=== PATIENT | female | born 1975 | race Caucasian/White ===

== ENCOUNTER → 2018-01-26 | Outpatient (CLI) | payer BC ==
--- NOTE | 2018-01-26 11:21 | XR ---
EXAMINATION TYPE: XR foot complete RT DATE OF EXAM: 01/26/2018 CLINICAL HISTORY: Stabbing injury with pain TECHNIQUE: Frontal, lateral, and oblique images of the right foot are obtained. COMPARISON: None FINDINGS: Seen best on lateral view there is 4 mm linear soft tissue foreign body along plantar surf demetrio at level of second and third metatarsal distal metaphyses. There is no acute fracture/dislocation evident in the right foot. Slight hallux valgus positioning with mild joint space loss first metatar sophalangeal joint is noted. IMPRESSION: There is 4 mm linear soft tissue foreign body confirmed on 3 views.
== END | disposition home or self-care (01) ==
LOC: RADXRMAIN 10:24
PROVIDERS: ATTEND Podiatrist Foot Surgery
DX: S90.851D Superficial foreign body, right foot, subsequent encounter (principal)

== ENCOUNTER → 2021-11-29 | Outpatient (CLI) | payer BC ==
--- NOTE | 2021-12-11 10:51 | MM ---
Reason for exam: screening (asymptomatic). Last mammogram was performed 6 years and 4 months ago. History: Family history of breast cancer in mother at age 65. Physical Findings: A clinical breast exam by your physician is recommended on an annual basis and results should be correlated with mammographic findings. MG 3D Screening Mammo W/Cad Bilateral CC and MLO view(s) were taken. Prior study comparison: August 09, 2015, mammogram, performed at [facility]. The breast tissue is extremely dense which could obscure a lesion on mammography. There is no discrete abnormality. ASSESSMENT: Negative, BI-RAD 1 RECOMMENDATION: Routine screening mammogram of both breasts in 1 year.
== END | disposition home or self-care (01) ==
LOC: RADMAMWWP 09:18
PROVIDERS: ATTEND Family Medicine
DX: Z12.31 Encounter for screening mammogram for malignant neoplasm of breast (principal); Z80.3 Family history of malignant neoplasm of breast
CPT/HCPCS: 77063; 77067

== ENCOUNTER → 2023-04-07 | Outpatient (CLI) | payer BC ==
--- NOTE | 2023-04-08 09:59 | MM ---
Reason for Exam: Screening (asymptomatic). Last mammogram was performed 1 year(s) and 4 month(s) ago. Patient History: Menarche at age 12. Patient has no children. Mother had breast cancer, age 65. Last menstrual period: 01/22/2023 Risk Values: Nicolle 5 year model risk: 1.8%. NCI Lifetime model risk: 17.3%. Prior Study Comparison: 08/09/2015 Screening Mammogram, [facility]. 11/29/2021 Bilateral Screening Mammogram, [facility]. Tissue Density: The breast tissue is heterogeneously dense. This may lower the sensitivity of mammography. Findings: Analyzed By CAD. Benign-appearing bilateral axillary lymph nodes are present. Asymmetric prominent tissue medially in the right breast again seen. There is no suspicious group of microcalcifications or new suspicious mass in either breast. Overall Assessment: Negative, BI-RAD 1 Management: Screening Mammogram of both breasts in 1 year. . Patient should continue monthly self-breast exams. A clinical breast exam by your physician is recommended on an annual basis. This exam should not preclude additional follow-up of suspicious palpable abnormalities. Note on Nicolle scores and lifetime risk: 1. A Nicolle score greater than 3% is considered moderate risk. If this is the case, consider specialist referral to assess eligibility for a risk reducing agent. 2. If overall lifetime risk for the development of breast cancer is 20% or higher, the patient may qualify for future screening with alternating mammogram and breast MRI. Electronically signed and approved by: Juve Ron M.D.
== END | disposition home or self-care (01) ==
LOC: RADMAMWWP 15:05
PROVIDERS: ATTEND Family Medicine
DX: Z12.31 Encounter for screening mammogram for malignant neoplasm of breast (principal); Z80.3 Family history of malignant neoplasm of breast
CPT/HCPCS: 77063; 77067

== ENCOUNTER → 2024-04-20 | Outpatient (CLI) | payer BC ==
--- NOTE | 2024-04-29 07:10 | MM ---
Reason for Exam: Screening (asymptomatic). Last mammogram was performed 1 year(s) and 1 month(s) ago. Patient History: Menarche at age 12. Patient has no children. Perimenopausal. Mother had breast cancer, age 65. Risk Values: Nicolle 5 year model risk: 1.8%. NCI Lifetime model risk: 17.1%. Prior Study Comparison: 08/09/2015 Screening Mammogram, [facility]. 11/29/2021 Bilateral Screening Mammogram, [facility]. 04/07/2023 Bilateral MG 3D screening mammo w/cad, [facility]. Tissue Density: The breasts are heterogeneously dense, which may obscure small masses. Findings: Analyzed By CAD. The pattern is symmetrical. No significant interval change No suspicious groups of microcalcifications, spiculated or lobular masses, architectural distortion or other secondary signs of malignancy are mammographically apparent. Overall Assessment: Benign, BI-RAD 2 Management: Screening Mammogram of both breasts in 1 year. A negative mammogram report should not preclude additional follow up of suspicious palpable abnormalities. Patient should continue monthly self breast exam. A clinical breast exam by your physician is recommended on an annual basis and results should be correlated with mammographic findings. Note on Nioclle scores and lifetime risk: 1. A Nicolle score greater than 3% is considered moderate risk. If this is the case, consider specialist referral to assess eligibility for a risk reducing agent. 2. If overall lifetime risk for the development of breast cancer is 20% or higher, the patient may qualify for future screening with alternating mammogram and breast MRI. Electronically signed and approved by: Alf Roberto D.O. Radiologis
== END | disposition home or self-care (01) ==
LOC: RADMAMWWP 13:06
PROVIDERS: ATTEND Family Medicine
DX: Z12.31 Encounter for screening mammogram for malignant neoplasm of breast (principal); R92.333 Mammographic heterogeneous density, bilateral breasts; Z80.3 Family history of malignant neoplasm of breast; Z78.0 Asymptomatic menopausal state
CPT/HCPCS: 77063; 77067